=== PATIENT | female | born 1975 | race Caucasian/White ===

== ENCOUNTER 2019-10-16 10:30 | Emergency (ER) | payer MEDICAID, OTHER ==
[~2019-10-16] VITALS: Ht 160 cm; Wt 76.5 kg
[~2019-10-16 10:30] MED LIST: IBUP-1986 PO; LIDO20SO PO
[2019-10-16 10:46] VITALS: BP 151/89
[2019-10-16] MEDS ORDERED: CYCL-1 PO (11:45)
[2019-10-16] MEDS ORDERED: CEPH250C PO (11:45)
== END 2019-10-16 12:01 | disposition home or self-care (01) ==
LOC: ER 10:30
DX: L03.115 Cellulitis of right lower limb (principal); J45.909 Unspecified asthma, uncomplicated; Z98.890 Other specified postprocedural states; Z79.2 Long term (current) use of antibiotics; Z79.1 Long term (current) use of non-steroidal anti-inflammatories (NSAID); Z79.899 Other long term (current) drug therapy
CPT/HCPCS: 99283